=== PATIENT | female | born 1930 | race African-American/Black ===

== ENCOUNTER 2016-12-09 20:01 | Emergency (ER) | payer MEDICARE, OTHER ==
[~2016-12-09] VITALS: Ht 172.7 cm; Wt 67.0 kg
[~2016-12-09 20:01] MED LIST: AMLO2.5T2 PO; ASPI325T2 PO; ATEN-42 PO; CELE200C PO; DONE5TAB3 PO; FLUO-124 PO; FOLI-43 PO; FURO-152 PO; GABA-529 PO; MEMA5TAB7 PO; NAPR-681 PO; NORCO 7.5/325; OCD PO; ZOLP10TA6 PO
[2016-12-10] MEDS ORDERED: ACETAMINOPHEN 325MG TABLET PO ONE (00:15)
[2016-12-10] MEDS ORDERED: LIDOCAINE HCL 1% 20ML VIAL (Pyxis) INJ MC ONE (00:15)
[2016-12-10 01:17] VITALS: BP 112/71
== END 2016-12-10 01:54 | disposition home or self-care (01) ==
LOC: ER 20:02
DX: L02.414 Cutaneous abscess of left upper limb (principal); L02.413 Cutaneous abscess of right upper limb; Z88.5 Allergy status to narcotic agent; Z79.82 Long term (current) use of aspirin; Z79.899 Other long term (current) drug therapy; Z96.649 Presence of unspecified artificial hip joint; Z96.659 Presence of unspecified artificial knee joint
CPT/HCPCS: 10061; 99284; J3490

== ENCOUNTER 2017-07-04 12:49 | Emergency (ER) | payer MEDICARE, MEDICAID ==
[~2017-07-04] VITALS: Ht 165.1 cm; Wt 75.0 kg
[~2017-07-04 12:49] MED LIST changes: +ASPI-986 PO; -ASPI325T2 PO; -DONE5TAB3 PO; +DONE5TAB7 PO
[2017-07-04] MEDS ORDERED: FENTANYL CITRATE/PF 50MCG/ML 2ML VIAL IV ONE (14:30)
[2017-07-04] MEDS ORDERED: ONDANSETRON HCL 4MG/2ML VIAL IV ONE (14:30)
[2017-07-04 15:04] LABS: BASOPHILS % 0.9 % (0.0-2.0); EOSINOPHILS % 3.5 % (0.0-5.0); HEMATOCRIT. 37.5 % (36.0-48.0); HEMOGLOBIN. 12.4 g/dL (12.0-16.0); LYMPHOCYTES % 35.4 % (20.0-50.0); MEAN CORPUSCULAR HEMOGLOBIN 32.1 pg (28.0-32.0); MEAN CORPUSCULAR VOLUME 97.2 fL (81.0-99.0); MEAN PLATELET VOLUME 9.1 fl (7.4-10.4); MONOCYTES % 8.1 % (2.0-8.0); NEUTROPHILS % 52.1 % (40.0-76.0); PLATELET 190 x1000/uL (130-400); RED BLOOD CELL COUNT 3.86 mill/uL (4.2-5.4)
[2017-07-04 15:07] LABS: CHLORIDE 110 mEq/L (98-107); PROTHROMBIN TIME 10.8 sec (9.4-11.6)
[2017-07-04 15:17] LABS: CARBON DIOXIDE 27 mEq/L (21-32); TROPONIN I < 0.02 ng/mL (0.00-0.04)
[2017-07-04] MEDS: FUROSEMIDE 40MG/4ML VIAL IVP SCH (19:13)
[2017-07-04 19:17] VITALS: BP 109/54
== END 2017-07-04 19:26 | disposition home or self-care (01) ==
LOC: ER 13:42
DX: R60.0 Localized edema (principal); I10 Essential (primary) hypertension; Z79.82 Long term (current) use of aspirin; Z88.5 Allergy status to narcotic agent
CPT/HCPCS: 36415; 71010; 80053; 83880; 84484; 85025; 85610; 93005; 93970; 96374; 96375; 99285; C1893; J1940; J2405; J3010

== ENCOUNTER 2017-08-15 17:09 | Emergency (ER) | payer MEDICARE, MEDICAID ==
[~2017-08-15] VITALS: Ht 165.1 cm; Wt 75.0 kg
[2017-08-15] MEDS ORDERED: SODIUM CHLORIDE 0.9% 1,000 ML IV ONE (22:27)
[2017-08-15 23:51] LABS: BASOPHILS % 0.3 % (0.0-2.0); HEMATOCRIT. 44.7 % (36.0-48.0); HEMOGLOBIN. 14.2 g/dL (12.0-16.0); LYMPHOCYTES % 9.3 % (20.0-50.0); MEAN CORPUSCULAR HEMOGLOBIN 30.9 pg (28.0-32.0); MEAN CORPUSCULAR VOLUME 97.4 fL (81.0-99.0); MEAN PLATELET VOLUME 8.8 fl (7.4-10.4); MONOCYTES % 1.1 % (2.0-8.0); NEUTROPHILS % 89.3 % (40.0-76.0); PLATELET 232 x1000/uL (130-400); RED BLOOD CELL COUNT 4.59 mill/uL (4.2-5.4); RED CELL DISTRIBUTION WIDTH 13.8 % (11.6-14.6)
[2017-08-15 23:55] LABS: CHLORIDE 111 mEq/L (98-107)
[2017-08-16] LABS: INR 1.7; PROTHROMBIN TIME 17.8 sec (9.4-11.6)
[2017-08-16 00:12] LABS: CARBON DIOXIDE 14 mEq/L (21-32)
[2017-08-16] MEDS ORDERED: LEVETIRACETAM 500 MG in SODIUM CHLORIDE 0.9% 100 ML IV SCH (02:30)
[2017-08-16] MEDS ORDERED: MORPHINE SULFATE 4 MG/ML CPJ (NOT FOR IM USE) IV ONE (04:30)
[2017-08-16] MEDS ORDERED: MORPHINE SULFATE 10 MG/ML CPJ IV SCH (04:45)
[2017-08-16] MEDS ORDERED: MORPHINE SULFATE 10 MG/ML CPJ IV ONE (04:45)
[2017-08-16 04:51] VITALS: BP 124/69
== END 2017-08-16 04:50 | disposition short-term general hospital (02) ==
LOC: ER 20:00
DX: I62.9 Nontraumatic intracranial hemorrhage, unspecified (principal); R05 Cough; M19.90 Unspecified osteoarthritis, unspecified site; Z88.5 Allergy status to narcotic agent; Z79.82 Long term (current) use of aspirin
CPT/HCPCS: 36415; 70450; 71010; 80053; 80307; 83605; 85025; 85610; 87040; 93005; 96365; 99291; J1953; J2270; J7030; J7050